=== PATIENT | male | born 1970 | race African-American/Black ===

== ENCOUNTER 2017-02-08 13:51 | Emergency (ER) | payer BC ==
[~2017-02-08] VITALS: Ht 190.5 cm; Wt 127.0 kg
[~2017-02-08 13:51] MED LIST: KEFLEX500 MG PO; LORTAB 7.57.5 MG PO; NAPROSYN500 MG PO; NO; PERCOCET 5/325M1 TAB PO; ROBITUSSIN AC10 ML PO
[2017-02-08] MEDS ORDERED: BACTRIM DS1 TAB PO (14:28)
[2017-02-08] MEDS ORDERED: CEPHALEXIN500 MG PO (14:28)
[2017-02-08 14:50] VITALS: BP 135/77
== END 2017-02-08 14:50 | disposition home or self-care (01) | DRG 603 ==
LOC: ED 13:51
DX: L03.115 Cellulitis of right lower limb (principal); M25.571 Pain in right ankle and joints of right foot

== ENCOUNTER 2020-02-18 17:18 | Emergency (ER) | payer BC ==
[~2020-02-18] VITALS: Ht 190.5 cm; Wt 128.0 kg
[~2020-02-18 17:18] MED LIST changes: +BACTRIM DS1 TAB PO; +CEPHALEXIN500 MG PO
[2020-02-18 18:32] VITALS: BP 130/63
[2020-02-18] MEDS ORDERED: OXYCODONE30 MG PO (18:36)
[2020-02-18] MEDS ORDERED: MOTRIN800 MG PO (18:36)
[2020-02-18] MEDS ORDERED: BIKTARVY 50-2001 TAB PO (18:37)
== END 2020-02-18 19:13 | disposition home or self-care (01) | DRG 179 ==
LOC: ED 17:18
DX: U07.1 COVID-19 (principal); R50.9 Fever, unspecified; E66.3 Overweight